=== PATIENT | female | born 1940 | race Caucasian/White ===

== ENCOUNTER 2023-10-22 06:09 | Inpatient (IN) | payer OTHER, BC ==
[2023-10-15 13:30] VITALS: BMI 35.2
[2023-10-22] MEDS ORDERED: MIDAZOLAM HCL 2 MG/2 ML SINGLE DOSE VIAL ONE ×2 (07:06→08:50)
[2023-10-22] MEDS ORDERED: PROPOFOL 20 ML ONE (07:06)
[2023-10-22] MEDS ORDERED: BUPIVACAINE HCL/PF 0.5% (5MG/ML) 10 ML VIAL ONE (07:08)
[2023-10-22] MEDS ORDERED: BUPIVACAINE HCL/PF 0.5% (5 MG/ML) 30 ML VIAL IJ ONE (07:09)
[2023-10-22] MEDS ORDERED: BUPIVACAINE LIPOSOME/PF (EXPAREL) 266 MG/20 ML VIAL ONE (07:10)
[2023-10-22] MEDS ORDERED: FENTANYL CITRATE/PF 50 MCG/ML VIAL ONE (07:24)
[2023-10-22] MEDS ORDERED: SODIUM CHLORIDE 0.9% P/F 10 ML VIAL IJ ONE (08:10)
[2023-10-22] MEDS ORDERED: TRANEXAMIC ACID 1000 MG/10 ML VIAL ONE ×2 (08:10→08:54)
[2023-10-22] MEDS ORDERED: ONDANSETRON 4 MG/2 ML VIAL ONE (08:10)
[2023-10-22] MEDS ORDERED: GLYCOPYRROLATE 0.2 MG/1 ML VIAL ONE (08:10)
[2023-10-22] MEDS ORDERED: PHENYLEPHRINE HCL 10 MG/1 ML SINGLE DOSE VIAL ONE (08:10)
[2023-10-22] MEDS ORDERED: ceFAZolin SODIUM 1 GM VIAL ONE ×2 (08:10→08:54)
[2023-10-22] MEDS ORDERED: PATIENT'S OWN MEDICATION (NON-FORMULARY) (Omeprazole [Omeprazole] 20 MG Tablet.Dr) PO SCH (10:00)
[2023-10-22] MEDS ORDERED: MAG HYDROX/AL HYDROX/SIMETH 30 ML UNIT-DOSE CUP PO PRN (10:01)
[2023-10-22] MEDS ORDERED: MAGNESIUM HYDROX 2400MG/30ML ORAL SUSPENSION 30 ML CUP PO PRN (10:01)
[2023-10-22] MEDS ORDERED: ACETAMINOPHEN INJECTION 100 ML IVPB ONE (10:02)
[2023-10-22] MEDS ORDERED: ONDANSETRON 4 MG/2 ML VIAL IVPUSH PRN (10:05)
[2023-10-22] MEDS: ACETAMINOPHEN 1000 MG/100 ML BAG IVPB ONE (10:07)
[2023-10-22] MEDS: LACTATED RINGERS SOLUTION 1,000 ML IV SCH (10:56)
[2023-10-22] MEDS: oxyCODONE HCL 5 MG TABLET PO PRN (12:17)
[2023-10-22] MEDS: CEFAZOLIN SODIUM 2 GM in DEXTROSE 5%-WATER 100 ML IVPB ONE (13:19)
[2023-10-22] MEDS: VERAPAMIL HCL 240 MG E.R. TABLET PO SCH (13:19)
[2023-10-22] MEDS: KETOROLAC TROMETHAMINE 15 MG/ML VIAL IVPUSH PRN (13:58)
[2023-10-22] MEDS: ACETAMINOPHEN 1000 MG/100 ML BAG IVPB PRN (15:36)
[2023-10-22] MEDS: TRANEXAMIC ACID 1000 MG/10 ML VIAL IVPB ONE (18:22)
[2023-10-22] MEDS ORDERED: ACETAMINOPHEN 1000 MG/100 ML BAG IVPB SCH (18:30)
[2023-10-22] MEDS: CEFAZOLIN SODIUM 2 GM in DEXTROSE 5%-WATER 100 ML IVPB SCH (18:58)
[2023-10-22 19:19] VITALS: RESP 18
[2023-10-22] MEDS: ACETAMINOPHEN 500 MG TABLET (FP) PO SCH (20:02)
[2023-10-22] MEDS: ASPIRIN COATED 81 MG TABLET.EC PO SCH (20:03)
[2023-10-22] MEDS: FAMOTIDINE 20 MG TABLET PO SCH (21:20)
[2023-10-22] MEDS: ASPIRIN 81 MG CHEWABLE TABLETS PO SCH (21:20)
[2023-10-22] MEDS: CELECOXIB 100 MG CAPSULE PO SCH (21:20)
[2023-10-22] MEDS: oxyCODONE HCL 10 MG SUSTAINED ACTING TABLET PO SCH (21:20)
[2023-10-22] MEDS: ASCORBIC ACID 500 MG TABLET (FP) PO SCH (21:20)
[2023-10-22] MEDS: GABAPENTIN 300 MG CAPSULE PO SCH (21:20)
[2023-10-22] MEDS: SENNOSIDES/DOCUSATE COMBO (SENNA PLUS) TABLET (UD) PO SCH (21:21)
[2023-10-23] MEDS: ONDANSETRON 4 MG/2 ML VIAL IVPUSH PRN (06:26)
[2023-10-23] MEDS: oxyCODONE HCL 5 MG TABLET PO PRN (08:21)
[2023-10-23] MEDS: MULTIVITAMINS (DAILY MVI) TABLET (FP) PO SCH (09:17)
[2023-10-23] MEDS: DEXAMETHASONE 4 MG TABLET (FP) PO ONE ×2 (09:17→14:41)
[2023-10-23] MEDS: PANTOPRAZOLE 40 MG TABLET PO SCH (09:17)
[2023-10-23] MEDS: ISOSORBIDE MONONITRATE 30 MG TAB.SR.24H (FP) PO SCH (09:18)
[2023-10-23] MEDS: TRANEXAMIC ACID 1000 MG/10 ML VIAL IVPB ONE (09:34)
[2023-10-23 14:37] VITALS: BP 108/46; PULSE 69; TEMP 97.6
== END 2023-10-23 18:01 | disposition home or self-care (01) | DRG 470 ==
LOC: FM/S 06:09 → EDSTATUS 10:15 → FM/S 12:03
PROVIDERS: ADMIT Orthopaedic Surgery; ATTEND Orthopaedic Surgery
PROC: 0SRC0J9 Replacement of Right Knee Joint with Synthetic Substitute, Cemented, Open Approach (ICD-10-PCS; principal; 2023-10-22 08:15)
DX: M17.11 Unilateral primary osteoarthritis, right knee (principal); M87.9 Osteonecrosis, unspecified; I10 Essential (primary) hypertension; K21.9 Gastro-esophageal reflux disease without esophagitis; D50.9 Iron deficiency anemia, unspecified; I44.7 Left bundle-branch block, unspecified; Z96.652 Presence of left artificial knee joint; E66.9 Obesity, unspecified; Z68.35 Body mass index [BMI] 35.0-35.9, adult
CPT/HCPCS: 73560-TC-RT-FY; 94760; 97010-GP; 97116-GP; 97162-GP; C1776; C1889; J0131